=== PATIENT | female | born 1990 | race Caucasian/White ===

== ENCOUNTER 2018-11-17 12:48 | Emergency (ER) | payer SELFPAY ==
[2018-11-17] MEDS ORDERED: Lidocaine 2% w/ Epi 1:200K 10 ML VIAL ONE (13:06)
== END 2018-11-17 13:26 | disposition home or self-care (01) ==
LOC: BURERS 12:48
DX: N75.0 Cyst of Bartholin's gland (principal); E78.5 Hyperlipidemia, unspecified
CPT/HCPCS: 56420

== ENCOUNTER 2018-12-26 20:49 | Emergency (ER) | payer SELFPAY ==
[~2018-12-26 20:49] MED LIST: Iopamidol 370 76% 100 ML VIAL ONE
[2018-12-26 21:05] LABS: Bilirubin Negative (Negative); Blood, Urine Negative (Negative); Clarity Cloudy (Clear); Glucose, Urine (Dipstick) Negative (Negative); Leukocyte Moderate (Negative); Nitrite Negative (Negative); Protein, Urine (Dipstick) Negative (Neg-Trace); Urobilinogen 0.2 mg/dL (Less than 2)
[2018-12-26 21:07] LABS: Pregnancy Test - Urine (BHCG) Negative (Negative); Pregu Control Background? CLEAR/WHITE (CLR/WHITE); Pregu Control Bar Appear? YES (CONTROL BAR)
[2018-12-26] MEDS ORDERED: Morphine 2 MG/ML SYRINGE ONE ×2 (21:11→22:16)
[2018-12-26] MEDS ORDERED: Ondansetron PF 4 MG/2 ML Vial ONE (21:11)
[2018-12-26 21:16] LABS: Bacteria/HPF 1+ HPF (None Seen); RBC/HPF 0-3 HPF (0-3); WBC/HPF 21-50 HPF (0-3)
[2018-12-26 21:41] LABS: Hemoglobin 8.8 g/dL (12.0-16.0); Mean Corpuscular HGB CONC 28.9 g/dL (32.0-36.0); Mean Corpuscular Hemoglobin 21.3 pg (27.0-31.0); Mean Corpuscular Volume 73.8 fL (78.0-98.0); Mean Platelet Volume 6.2 fL (7.4-10.4); Platelet Count 404 thou/uL (130-400); RBC Distribution Width 17.2 % (11.5-14.5); Red Blood Cell (RBC) Count 4.13 mill/uL (4.20-5.40); White Blood Cell (WBC) Count 7.5 thou/uL (4.8-10.8)
[2018-12-26 21:51] LABS: ALT (SGPT) 8 U/L (8-55); AST (SGOT) 11 U/L (5-34); Alkaline Phosphatase 63 U/L (40-110); Anion Gap 12 mmol/L (10-20); BUN (Urea Nitrogen) 10 mg/dL (7.0-18.7); Bilirubin, Total 0.4 mg/dL (0.2-1.2); Calc. Creatinine Clearance 0 mL/min (70-130); Calcium 9.9 mg/dL (7.8-10.44); Carbon Dioxide 26 mmol/L (22-29); Chloride 105 mmol/L (98-107); Estimated GFR-MDRD 74; Glucose 84 mg/dL (70-105); Lipase 17 U/L (8-78); Potassium 3.8 mmol/L (3.5-5.1); Sodium 139 mmol/L (136-145)
[2018-12-26 21:53] LABS: #Basophils 0.1 thou/uL (0.0-0.2); #Eosinphils 0.1 thou/uL (0.0-0.7); #Lymphocytes 2.2 thou/uL (1.20-3.40); #Monocytes 0.5 thou/uL (0.11-0.59); #Neutrophils 4.9 thou/uL (1.40-6.50); %Eosinophils 0.9 % (0.0-10.0); %Lymphocytes 27.2 % (21.0-51.0); %Monocytes 6.1 % (0.0-10.0); %Neutrophils 64.7 % (42.0-75.0); Anisocytosis SLIGHT = 6-15 cells (100X) (0-5/hpf); Hypochromia MODERATE=16-30 cells (100X) (0-5/hpf); MDiff Complete? YES; Microcytosis MODERATE=15-30 cells (100X) (0-5/hpf); Ovalocytes SLIGHT = 2-5 cells (100X) (0-1/hpf); Platelet Morphology Comment Appears Adequate; Spherocytes SLIGHT = 1-5 cells (100X) (None Seen)
[2018-12-26] MEDS ORDERED: Thiamine HCl 200 MG/2 ML VIAL ONE (22:25)
[2018-12-27] MEDS ORDERED: Ondansetron PF 4 MG/2 ML Vial ONE (00:19)
--- NOTE | 2018-12-27 09:15 | CT ---
PRELIMINARY REPORT/[facility]/EMERGENCY AFTER HOURS PROCEDURE: PROCEDURE INFORMATION: Exam: CT Abdomen And Pelvis With Contrast Exam date and time: 12/26/2018 10:55 PM Clinical history: 27 years old, female; Abdominal pain; Generalized; Prior surgery; Surgery date: 6+ months; Surgery type: Gastric bypass 4 years ago, cholecystecomy, appendectomy, ; Patient HX : PT C/O of abd pain TECHNIQUE: Imaging protocol: Computed tomography of the abdomen and pelvis with intravenous contrast. Radiation optimization: All CT scans at this facility use at least one of these dose optimization techniques: a utomated exposure control; mA and/or kV adjustment per patient size (includes targeted exams where dose is matched to clinical indication); or iterative reconstruction. Contrast material: ISOVUE 370; Contrast volume: 96 ml; Contrast route: LT AC; COMPARISON: No relevant prior studies available. FINDINGS: Liver: Normal. Gallbladder and bile ducts: Gallbladder is surgically absent. Pancreas: Normal. Spleen: Normal. Adrenals: Normal. Kidneys and ureters: Normal. Stomach and bowel: Surgical changes of prior gastric bypass. Minimal wall thickening of the proximal Alli-en-Y loop, which can be seen with infection or inflammation. Appendix: Appendix is surgically absent. Intraperitoneal space: Unremarkable. No free air. No significant fluid collection. Vasculature: Phleboliths within the pelvis. Lymph nodes: Unremarkable. No enlarged lymph nodes. Bladder: Unremarkable as visualized. Reproductive: 18 mm cystic structure within the right adnexa, likely right ovarian cyst. Bones/joints: No acute abnormality. Soft tissues: Normal. IMPRESSION: Minimal wall thickening of the proximal Alli-en-Y loop, which can be seen with infection or inflammat ion. Thank you for allowing us to participate in the care of your patient. Dictated and Authenticated by: Travis Morley MD 12/26/2018 11:25 PM Central Time ([place] & [place]) FINAL REPORT CT ABDOMEN AND PELVIS WITH CONTRAST: Date: 12/26/[address] of the abdomen and pelvis was performed with IV contrast and apparently a small amount of o ral. The lung bases are clear. Liver, spleen, pancreas, adrenal glands, kidneys, and abdominal aorta appea r normal. There has been a prior cholecystectomy. The patient has had a gastric bypass. The proximal loop may be mildly thickened. Bowel shows no diste ntion or particular wall thickening. There is no free air or free fluid. No inflammatory change is se en around the bowel. CT of the pelvis suggests a small right adnexal cyst that is probably a small ovarian cyst. It measur es about 1.7 cm in size. No free fluid seen. No inflammatory changes. IMPRESSION: Possible mild thickening of the proximal loop of the gastric bypass. Report in agreement with preliminary reading by Sheryl. POS: HOME
== END 2018-12-27 00:25 | disposition home or self-care (01) ==
LOC: BURERS 20:49
DX: R10.11 Right upper quadrant pain (principal); R10.84 Generalized abdominal pain; R10.812 Left upper quadrant abdominal tenderness; R10.814 Left lower quadrant abdominal tenderness; D50.9 Iron deficiency anemia, unspecified; N39.0 Urinary tract infection, site not specified; R11.2 Nausea with vomiting, unspecified; E78.5 Hyperlipidemia, unspecified
CPT/HCPCS: 74177; 80053; 81003; 81015; 81025; 83605; 83690; 85025; 86140; 87086; 94760; 96361; 96365; 96367; 96375; 96376; J1956; J2270; J2405; J3411; Q9967

== ENCOUNTER 2019-10-18 15:34 | Emergency (ER) | payer SELFPAY ==
[2019-10-18 16:26] LABS: Pregnancy Test - Urine (BHCG) Negative (Negative); Pregu Control Background? CLEAR/WHITE (CLR/WHITE); Pregu Control Bar Appear? YES (CONTROL BAR)
[2019-10-18 16:46] LABS: Bilirubin Small (Negative); Blood, Urine Negative (Negative); Clarity Clear (Clear); Glucose, Urine (Dipstick) Negative (Negative); Ketone, Urine Trace mg/dL (Negative); Leukocyte Negative (Negative); Nitrite Negative (Negative); Protein, Urine (Dipstick) 30 mg/dL (Neg-Trace); Urobilinogen 0.2 mg/dL (Less than 2); pH, Urine 5.5 (5.0-9.0)
[2019-10-18 16:50] LABS: Bacteria/HPF Rare-Few HPF (None Seen); RBC/HPF None Seen HPF (0-3); WBC/HPF 0-3 HPF (0-3); Yeast-Budding Rare HPF (None Seen)
[2019-10-18] MEDS ORDERED: Mag-Al Plus 1200 MG/1200 MG/120 MG/30 ML UDCUP ONE (17:02)
[2019-10-18] MEDS ORDERED: Lidocaine Viscous Sol 2% 15 ml UD Cup ONE (17:02)
[2019-10-18] MEDS ORDERED: Morphine 4 MG/ML VIAL ONE ×2 (17:07→18:35)
[2019-10-18] MEDS ORDERED: Pantoprazole 40 MG VIAL ONE (17:08)
[2019-10-18] MEDS ORDERED: Ondansetron PF 4 MG/2 ML Vial ONE ×2 (17:08→18:35)
[2019-10-18 17:39] LABS: Hemoglobin 10.8 g/dL (12.0-16.0); Mean Corpuscular HGB CONC 28.8 g/dL (32.0-36.0); Mean Corpuscular Volume 80.1 fL (78.0-98.0); Mean Platelet Volume 5.8 fL (7.4-10.4); Platelet Count 333 thou/uL (130-400); RBC Distribution Width 16.3 % (11.5-14.5); Red Blood Cell (RBC) Count 4.69 mill/uL (4.20-5.40); White Blood Cell (WBC) Count 8.9 thou/uL (4.8-10.8)
[2019-10-18 17:40] LABS: ALT (SGPT) 18 U/L (8-55); AST (SGOT) 21 U/L (5-34); Albumin 4.7 g/dL (3.5-5.0); Alkaline Phosphatase 59 U/L (40-110); Anion Gap 16 mmol/L (10-20); BUN (Urea Nitrogen) 16 mg/dL (7.0-18.7); Bilirubin, Total 0.4 mg/dL (0.2-1.2); Calc. Creatinine Clearance 0 mL/min (70-130); Calcium 9.4 mg/dL (7.8-10.44); Carbon Dioxide 21 mmol/L (22-29); Chloride 104 mmol/L (98-107); Estimated GFR-MDRD 66; Globulin 3.6 g/dL (2.4-3.5); Glucose 89 mg/dL (70-105); Lipase 14 U/L (8-78); Potassium 4.1 mmol/L (3.5-5.1); Protein, Total 8.3 g/dL (6.0-8.3); Sodium 137 mmol/L (136-145)
[2019-10-18 17:44] LABS: Anisocytosis SLIGHT = 6-15 cells (100X) (0-5/hpf); Band 1 % (5-11); Elliptocytes SLIGHT = 2-5 cells (100X) (0-1/hpf); Eosinophils 1 % (0-10); Lymphocytes 21 % (21-51); MDiff Complete? YES; Monocytes 5 % (0-10); Neutrophil 72 % (42-75); Poikilocytosis SLIGHT = 6-15 cells (100X) (0-5/hpf); Tear Drops SLIGHT = 2-5 cells (100X) (0-1/hpf)
[2019-10-18] MEDS ORDERED: Sucralfate 1 GM TAB PO SCH (17:45)
--- NOTE | 2019-10-18 19:20 | CT ---
CT ABDOMEN AND PELVIS WITH CONTRAST: 10/18/[address] of the abdomen and pelvis was performed for evaluation of epigastric pain radiating through to the back. Comparison is made with the prior CT of 12/26/18. The lung bases are clear. The liver, spleen, pancreas, adrenal glands, kidneys, and abdominal aorta a ppear normal. There has been a prior cholecystectomy and a prior gastric bypass procedure is visible. No inflammatory changes are seen in the upper abdomen. No specific reason for epigastric pain was ap preciated. The common bile duct is prominent in size, 1 cm wide, but it can be followed all the way t o the duodenum and 1 cm is the usual upper normal in a post cholecystectomy patient. There is no distention of bowel to suggest obstruction. Surgical changes are seen from a prior append ectomy. Some of the proximal to mid loops of small bowel are fluid-filled which is a nonspecific find ings, sometimes a part of mild enteritis. I do not see any excessive mesenteric adenopathy. There is no free air or free fluid. CT of the pelvis shows a 4 cm bilobed right ovarian cyst. This is a new finding since the prior CT [facility] just showed a very small cyst (1.7 cm or so). There is no free fluid or inflammatory change in th e pelvis. IMPRESSION: 1. Mildly fluid-filled loops of small bowel, a nonspecific finding. Sometimes seen with mild ent eritis. 2. 4 cm bilobed right ovarian cyst. This may deserve some further follow-up electively. Findings discussed with Dr. Bee at 1907 on 10/18/19. POS: HOME
== END 2019-10-18 19:16 | disposition home or self-care (01) ==
LOC: BURERS 15:34
DX: R10.13 Epigastric pain (principal); E78.5 Hyperlipidemia, unspecified
CPT/HCPCS: 36415; 74177; 80053; 81003; 81015; 81025; 83605; 83690; 85025; 93005; 96365; 96375; 96376; C9113; J2270; J2405; Q9967

== ENCOUNTER 2019-12-10 09:15 | Emergency (ER) | payer OTHER, SELFPAY ==
[2019-12-10] MEDS ORDERED: Morphine 4 MG/ML VIAL ONE (09:39)
[2019-12-10] MEDS ORDERED: Ondansetron PF 4 MG/2 ML Vial ONE ×2 (09:40→10:23)
[2019-12-10] MEDS ORDERED: Lidocaine 2% w/Epinephrine 1:200K 20 ML VIAL ONE (10:01)
[2019-12-10] MEDS ORDERED: Bacitracin 1 PK ONE (10:02)
[2019-12-10 10:07] LABS: Hemoglobin 10.1 g/dL (12.0-16.0); Mean Corpuscular HGB CONC 28.9 g/dL (32.0-36.0); Mean Corpuscular Hemoglobin 23.2 pg (27.0-31.0); Mean Corpuscular Volume 80.3 fL (78.0-98.0); Mean Platelet Volume 6.1 fL (7.4-10.4); Platelet Count 426 thou/uL (130-400); RBC Distribution Width 17.8 % (11.5-14.5); Red Blood Cell (RBC) Count 4.33 mill/uL (4.20-5.40); White Blood Cell (WBC) Count 9.1 thou/uL (4.8-10.8)
[2019-12-10 10:14] LABS: BHCG - Serum Negative (NEGATIVE); Pregs Control Background? CLEAR/WHITE (CLR/WHITE); Pregs Control Bar Appear? YES (CONTROL BAR)
[2019-12-10 10:17] LABS: ALT (SGPT) 14 U/L (8-55); AST (SGOT) 15 U/L (5-34); Albumin 4.6 g/dL (3.5-5.0); Alkaline Phosphatase 60 U/L (40-110); Anion Gap 16 mmol/L (10-20); BUN (Urea Nitrogen) 14 mg/dL (7.0-18.7); Bilirubin, Total 0.4 mg/dL (0.2-1.2); Calc. Creatinine Clearance 0 mL/min (70-130); Calcium 9.6 mg/dL (7.8-10.44); Carbon Dioxide 22 mmol/L (22-29); Chloride 105 mmol/L (98-107); Globulin 3.6 g/dL (2.4-3.5); Glucose 100 mg/dL (70-105); Lipase 26 U/L (8-78); Protein, Total 8.2 g/dL (6.0-8.3); Sodium 139 mmol/L (136-145)
[2019-12-10 10:20] LABS: Bilirubin Negative (Negative); Blood, Urine Negative (Negative); Clarity Clear (Clear); Glucose, Urine (Dipstick) Negative (Negative); Ketone, Urine Negative (Negative); Leukocyte Trace (Negative); Nitrite Negative (Negative); Protein, Urine (Dipstick) Negative (Neg-Trace); Specific Gravity, Urine 1.015 (1.005-1.030); Urobilinogen 0.2 mg/dL (Less than 2)
[2019-12-10] MEDS ORDERED: Famotidine In NaCl 20 mg/50 ml Premix Bag ONE (10:21)
[2019-12-10 10:22] LABS: Bacteria/HPF 1+ HPF (None Seen); RBC/HPF 0-3 HPF (0-3); WBC/HPF 0-3 HPF (0-3)
[2019-12-10] MEDS ORDERED: Fentanyl 100 MCG/2 ML VIAL ONE (10:23)
[2019-12-10 10:33] LABS: #Eosinphils 0.2 thou/uL (0.0-0.7); #Lymphocytes 1.2 thou/uL (1.20-3.40); #Monocytes 0.5 thou/uL (0.11-0.59); #Neutrophils 7.1 thou/uL (1.40-6.50); %Basophils 0.5 % (0.0-1.0); %Eosinophils 2.7 % (0.0-10.0); %Lymphocytes 13.3 % (21.0-51.0); %Monocytes 5.3 % (0.0-10.0); %Neutrophils 78.2 % (42.0-75.0); Anisocytosis SLIGHT = 6-15 cells (100X) (0-5/hpf); Elliptocytes SLIGHT = 2-5 cells (100X) (0-1/hpf); Hypochromia SLIGHT = 6-15 cells (100X) (0-5/hpf); MDiff Complete? YES; Platelet Morphology Comment Appears Adequate
[2019-12-10] MEDS ORDERED: Promethazine HCl 25 MG/ML VIAL ONE (11:51)
[2019-12-10] MEDS ORDERED: Mag-Al Plus 1200 MG/1200 MG/120 MG/30 ML UDCUP ONE (11:51)
[2019-12-10] MEDS ORDERED: Lidocaine Viscous Sol 2% 15 ml UD Cup ONE (11:51)
[2019-12-10] MEDS ORDERED: Sulfameth/Trimethoprim DS 800-160mg TAB ONE (13:06)
[2019-12-10] MEDS ORDERED: Hydrocodone-Acetamin 15 ML UDCUP ONE (13:07)
--- NOTE | 2019-12-10 13:29 | CT ---
CT ABDOMEN AND PELVIS WITH CONTRAST: Date: 12/10/2019 Comparison is made with the 10/18/2019 study. This exam was done using both oral and IV contrast. FINDINGS: The lung bases are clear. The liver, spleen, pancreas, adrenal glands, and kidneys show no acute findings. Some areas in the qu adrate lobe of the liver that do not enhance as much as the remainder of the liver may be a pocket of fatty sparing. It was present before and has not changed. It is of no concern. The aorta is normal i n appearance. Oral contrast is present in the gastric remnant, as well as proximal small bowel. There are no loops that are tremendously dilated to suggest obstruction, nor is there any organization of loops. Some of the more proximal loops have some fluid levels in them, not unlike last time, though actually I woul d say less so than before. One could question whether the wall thickness of the pyloric portion of th e gastric remnant is slightly thickened, but this is a marginal finding at best. No free air or free fluid was seen. No dilation of colon or inflammatory changes were seen around it. CT of the pelvis shows no pelvic masses. The right ovarian cyst seen last time has resolved. There is no free fluid or inflammatory change in the region. IMPRESSION: 1. No evidence of obstruction. Appearance of the abdomen is fairly similar to the September study. 2. Very equivocal thickening of the distal/pyloric portion of the gastric remnant that may or may no t be significant. 3. Some fluid in small bowel, but without any significant dilation. Actually, a little less so than before. 4. Prior ovarian cyst resolved. Preliminary report called to Dr. Chavez at 1128 hours on 01/10/2020. CODE CR. POS: HOME
[2019-12-10] MEDS ORDERED: Iopamidol 370 76% 100 ML VIAL ONE (17:09)
[2019-12-11 12:04] LABS: SARS-CoV-2 MS2 Positive; SARS-CoV-2 N Gene Negative; SARS-CoV-2 S Gene Negative; SARS-CoV-2 by NAA Not Detected (NotDetected); SARS-CoV-2 orf1ab Negative
== END 2019-12-10 14:10 | disposition home or self-care (01) ==
LOC: BURERS 09:15
DX: R11.2 Nausea with vomiting, unspecified (principal); R19.7 Diarrhea, unspecified; Z20.828 Contact with and (suspected) exposure to other viral communicable diseases; L02.211 Cutaneous abscess of abdominal wall; L03.311 Cellulitis of abdominal wall; E78.5 Hyperlipidemia, unspecified; K21.9 Gastro-esophageal reflux disease without esophagitis; F41.9 Anxiety disorder, unspecified; F17.210 Nicotine dependence, cigarettes, uncomplicated; Z79.899 Other long term (current) drug therapy
CPT/HCPCS: 10060; 74177; 80053; 81003; 81015; 83605; 83690; 84703; 85025; 87635; 87804; 96365; 96375; 96376; J2270; J2405; J2550; J3010; Q9967; U0003

== ENCOUNTER 2019-12-15 09:51 | Emergency (ER) | payer SELFPAY ==
[2019-12-15] MEDS ORDERED: Ondansetron ODT 4 MG TAB ONE (10:58)
== END 2019-12-15 11:30 | disposition home or self-care (01) ==
LOC: BURERS 09:51
DX: R10.9 Unspecified abdominal pain (principal); R11.2 Nausea with vomiting, unspecified; R19.7 Diarrhea, unspecified; E78.5 Hyperlipidemia, unspecified; K21.9 Gastro-esophageal reflux disease without esophagitis; F41.9 Anxiety disorder, unspecified; F17.210 Nicotine dependence, cigarettes, uncomplicated
CPT/HCPCS: 99283; J0500; Q0162

== ENCOUNTER 2020-03-30 10:31 | Emergency (ER) | payer OTHER, SELFPAY ==
[2020-03-30 11:18] LABS: INR-International Normal Ratio 0.9; Prothrombin Time 12.2 sec (12.0-14.7)
[2020-03-30 11:20] LABS: Hemoglobin 9.4 g/dL (12.0-16.0); Mean Corpuscular HGB CONC 29.5 g/dL (32.0-36.0); Mean Corpuscular Hemoglobin 21.3 pg (27.0-31.0); Mean Corpuscular Volume 72.2 fL (78.0-98.0); Mean Platelet Volume 6.7 fL (7.4-10.4); Platelet Count 311 thou/uL (130-400); RBC Distribution Width 15.8 % (11.5-14.5); Red Blood Cell (RBC) Count 4.42 mill/uL (4.20-5.40)
[2020-03-30 11:29] LABS: ALT (SGPT) 14 U/L (8-55); AST (SGOT) 17 U/L (5-34); Albumin 4.3 g/dL (3.5-5.0); Alkaline Phosphatase 65 U/L (40-110); Anion Gap 14 mmol/L (10-20); BUN (Urea Nitrogen) 11 mg/dL (7.0-18.7); Bilirubin, Total 0.4 mg/dL (0.2-1.2); Calc. Creatinine Clearance 0 mL/min (70-130); Carbon Dioxide 22 mmol/L (22-29); Chloride 106 mmol/L (98-107); Globulin 3.3 g/dL (2.4-3.5); Glucose 91 mg/dL (70-105); Protein, Total 7.6 g/dL (6.0-8.3); Sodium 138 mmol/L (136-145)
[2020-03-30 11:36] LABS: #Basophils 0.1 thou/uL (0.0-0.2); #Eosinphils 0.1 thou/uL (0.0-0.7); #Lymphocytes 1.4 thou/uL (1.20-3.40); #Monocytes 0.2 thou/uL (0.11-0.59); #Neutrophils 3.2 thou/uL (1.40-6.50); %Basophils 1.5 % (0.0-1.0); %Eosinophils 2.4 % (0.0-10.0); %Lymphocytes 28.2 % (21.0-51.0); %Neutrophils 63.9 % (42.0-75.0); Elliptocytes SLIGHT = 2-5 cells (100X) (0-1/hpf); Hypochromia MODERATE=16-30 cells (100X) (0-5/hpf); MDiff Complete? YES; Microcytosis MODERATE=15-30 cells (100X) (0-5/hpf)
[2020-03-30] MEDS ORDERED: diphenhydrAMINE 50 MG/ML VIAL ONE (11:41)
[2020-03-30] MEDS ORDERED: methylPREDNISolone Sod Succ/PF 125 MG/2 ML VIAL ONE (11:41)
[2020-03-30] MEDS ORDERED: Metoclopramide HCl 10 MG/2 ML VIAL ONE (11:41)
== END 2020-03-30 12:11 | disposition left against medical advice (07) ==
LOC: BURERS 10:31
DX: G43.909 Migraine, unspecified, not intractable, without status migrainosus (principal); R20.2 Paresthesia of skin
CPT/HCPCS: 80053; 85025; 85610; 96374; 96375; J1200; J2765; J2930

== ENCOUNTER 2020-08-11 11:59 | Emergency (ER) | payer SELFPAY ==
[~2020-08-11 11:59] MED LIST changes: +Iopamidol 370 76% 50 ML VIAL FS ONE
[2020-08-11] MEDS ORDERED: Ondansetron PF 4 MG/2 ML Vial ONE ×2 (12:15→12:53)
[2020-08-11] MEDS ORDERED: Morphine 4 MG/ML VIAL ONE (12:15)
[2020-08-11] MEDS ORDERED: Thiamine HCl 200 MG/2 ML VIAL ONE (12:25)
[2020-08-11 12:29] LABS: Bilirubin Negative (Negative); Blood, Urine Negative (Negative); Clarity Clear (Clear); Glucose, Urine (Dipstick) Negative (Negative); Ketone, Urine Negative (Negative); Leukocyte Negative (Negative); Nitrite Negative (Negative); Protein, Urine (Dipstick) Negative (Neg-Trace); Urobilinogen 0.2 mg/dL (Less than 2)
[2020-08-11 12:38] LABS: BHCG - Serum Negative (NEGATIVE); Pregs Control Background? CLEAR/WHITE (CLR/WHITE); Pregs Control Bar Appear? YES (CONTROL BAR)
[2020-08-11 12:42] LABS: ALT (SGPT) 9 U/L (8-55); AST (SGOT) 21 U/L (5-34); Albumin 4.1 g/dL (3.5-5.0); Alkaline Phosphatase 39 U/L (40-110); Anion Gap 15 mmol/L (10-20); BUN (Urea Nitrogen) 14 mg/dL (7.0-18.7); Bilirubin, Total 0.3 mg/dL (0.2-1.2); Calc. Creatinine Clearance 0 mL/min (70-130); Calcium 8.8 mg/dL (7.8-10.44); Carbon Dioxide 17 mmol/L (22-29); Chloride 110 mmol/L (98-107); Globulin 3.2 g/dL (2.4-3.5); Glucose 126 mg/dL (70-105); Lipase 17 U/L (8-78); Potassium 4.3 mmol/L (3.5-5.1); Protein, Total 7.3 g/dL (6.0-8.3); Sodium 138 mmol/L (136-145)
[2020-08-11] MEDS ORDERED: Fentanyl 100 MCG/2 ML VIAL ONE (12:53)
[2020-08-11 13:05] LABS: Hemoglobin 8.7 g/dL (12.0-16.0); Mean Corpuscular HGB CONC 29.9 g/dL (32.0-36.0); Mean Corpuscular Hemoglobin 20.4 pg (27.0-31.0); Mean Corpuscular Volume 68.2 fL (78.0-98.0); Mean Platelet Volume 6.4 fL (7.4-10.4); Platelet Count 397 thou/uL (130-400); RBC Distribution Width 19.1 % (11.5-14.5); Red Blood Cell (RBC) Count 4.25 mill/uL (4.20-5.40); White Blood Cell (WBC) Count 5.9 thou/uL (4.8-10.8)
[2020-08-11 13:15] LABS: Band 2 % (5-11); Bite Cells SLIGHT = 2-5 cells (100X) (0-1/hpf); Hypersemented Neutrophil SLIGHT; Hypochromia SLIGHT = 6-15 cells (100X) (0-5/hpf); Lymphocytes 32 % (21-51); MDiff Complete? YES; Microcytosis MODERATE=15-30 cells (100X) (0-5/hpf); Monocytes 2 % (0-10); Neutrophil 62 % (42-75); Ovalocytes SLIGHT = 2-5 cells (100X) (0-1/hpf); Platelet Morphology Comment Appears Adequate; Reactive Lymphocytes 2 % (0-10); Spherocytes SLIGHT = 1-5 cells (100X) (None Seen)
[2020-08-11] MEDS ORDERED: Promethazine HCl 25 MG/ML VIAL ONE (13:56)
== END 2020-08-11 14:02 | disposition home or self-care (01) ==
LOC: BURERS 11:59
DX: R10.13 Epigastric pain (principal); R19.7 Diarrhea, unspecified; R11.2 Nausea with vomiting, unspecified; F17.200 Nicotine dependence, unspecified, uncomplicated
CPT/HCPCS: 74177; 80053; 81003; 83605; 83690; 84703; 85025; 96372; 96374; 96375; 96376; J0500; J2270; J2405; J2550; J3010; J3411; Q9967

== ENCOUNTER 2020-11-20 14:44 | Emergency (ER) | payer SELFPAY ==
[2020-11-20] MEDS ORDERED: Fentanyl 100 MCG/2 ML VIAL ONE (15:29)
[2020-11-20] MEDS ORDERED: Ondansetron PF 4 MG/2 ML Vial ONE (15:29)
[2020-11-20 15:39] LABS: Clarity Turbid (Clear); pH, Urine 6.5 (5.0-9.0)
[2020-11-20 15:41] LABS: Bilirubin Unable to Interpret (Negative); Blood, Urine Unable to Interpret (Negative); Glucose, Urine (Dipstick) Unable to Interpret mg/dL (Negative); Ketone, Urine Unable to Interpret mg/dL (Negative); Leukocyte Unable to Interpret (Negative); Nitrite Unable to Interpret (Negative); Protein, Urine (Dipstick) Unable to Interpret mg/dL (Neg-Trace); Urobilinogen UNABLE TO INTERPRET mg/dL (Less than 2)
[2020-11-20 15:42] LABS: Pregnancy Test - Urine (BHCG) Negative (Negative); Pregu Control Background? CLEAR/WHITE (CLR/WHITE); Pregu Control Bar Appear? YES (CONTROL BAR)
[2020-11-20 15:44] LABS: Bacteria/HPF 1+ HPF (None Seen); Mucous/LPF Rare LPF (<2+); RBC/HPF Greater than 50 HPF (0-3); Squamous Epithelial 0-3 HPF (0-3); WBC/HPF 0-3 HPF (0-3)
[2020-11-20 15:46] LABS: Amphetamine Not Detected (NotDetected); Barbiturates Screen Not Detected (NotDetected); Benzodiazepine Screen Not Detected (NotDetected); Cocaine Metabolite Screen Not Detected (NotDetected); Medtox Control Line Valid? VALID (VALID); Methadone Not Detected (NotDetected); Methamphetamine Not Detected (NotDetected); Opiate Screen Not Detected (NotDetected); Oxycodone Screen Not Detected (NotDetected); Phencyclidine (PCP) Not Detected (NotDetected); THC/Cannabinoid Screen Detected (NotDetected); Tricyclic Screen Not Detected (NotDetected)
[2020-11-20 15:52] LABS: #Lymphocytes 1.8 thou/uL (1.20-3.40); #Monocytes 0.3 thou/uL (0.11-0.59); #Neutrophils 5.6 thou/uL (1.40-6.50); %Basophils 0.5 % (0.0-1.0); %Eosinophils 0.5 % (0.0-10.0); %Lymphocytes 23.2 % (21.0-51.0); %Monocytes 3.6 % (0.0-10.0); %Neutrophils 72.2 % (42.0-75.0); Hemoglobin 9.7 g/dL (12.0-16.0); Mean Corpuscular HGB CONC 31.1 g/dL (32.0-36.0); Mean Corpuscular Hemoglobin 22.6 pg (27.0-31.0); Mean Corpuscular Volume 72.9 fL (78.0-98.0); Mean Platelet Volume 5.9 fL (7.4-10.4); Platelet Count 420 thou/uL (130-400); RBC Distribution Width 18.1 % (11.5-14.5); Red Blood Cell (RBC) Count 4.28 mill/uL (4.20-5.40); White Blood Cell (WBC) Count 7.7 thou/uL (4.8-10.8)
[2020-11-20 15:58] LABS: MDiff Complete? YES
[2020-11-20 16:04] LABS: ALT (SGPT) 17 U/L (8-55); AST (SGOT) 22 U/L (5-34); Albumin 4.2 g/dL (3.5-5.0); Alkaline Phosphatase 38 U/L (40-110); Anion Gap 15 mmol/L (10-20); BUN (Urea Nitrogen) 15 mg/dL (7.0-18.7); Bilirubin, Total 0.3 mg/dL (0.2-1.2); Calc. Creatinine Clearance 0 mL/min (70-130); Calcium 9.4 mg/dL (7.8-10.44); Carbon Dioxide 20 mmol/L (22-29); Chloride 107 mmol/L (98-107); Globulin 3.4 g/dL (2.4-3.5); Glucose 82 mg/dL (70-105); Lipase 18 U/L (8-78); Protein, Total 7.6 g/dL (6.0-8.3); Sodium 138 mmol/L (136-145)
[2020-11-20] MEDS ORDERED: Ketorolac Tromethamine 30 MG/ML VIAL ONE (16:20)
== END 2020-11-20 17:01 | disposition home or self-care (01) ==
LOC: BURERS 14:44
DX: N93.9 Abnormal uterine and vaginal bleeding, unspecified (principal); D64.9 Anemia, unspecified; F12.10 Cannabis abuse, uncomplicated; R10.12 Left upper quadrant pain; F17.200 Nicotine dependence, unspecified, uncomplicated; R79.0 Abnormal level of blood mineral; Z79.899 Other long term (current) drug therapy
CPT/HCPCS: 80053; 80306; 81003; 81015; 81025; 83690; 85025; 96374; 96375; J1885; J2405; J3010

== ENCOUNTER 2022-03-26 11:28 | Emergency (ER) | payer BC, SELFPAY ==
[2022-03-26] MEDS ORDERED: Ketorolac Tromethamine 30 MG/ML VIAL ONE (12:07)
[2022-03-26] MEDS ORDERED: Ondansetron PF 4 MG/2 ML Vial ONE (12:07)
[2022-03-26 12:13] LABS: Bilirubin Negative (Negative); Blood, Urine Negative (Negative); Clarity Clear (Clear); Glucose, Urine (Dipstick) Negative (Negative); Ketone, Urine Negative (Negative); Leukocyte Negative (Negative); Nitrite Negative (Negative); Protein, Urine (Dipstick) Negative (Neg-Trace); Specific Gravity, Urine 1.015 (1.005-1.030); Urobilinogen 0.2 mg/dL (Less than 2)
[2022-03-26 12:16] LABS: #Basophils 0.1 thou/uL (0.0-0.2); #Eosinphils 0.2 thou/uL (0.0-0.7); #Lymphocytes 1.6 thou/uL (1.20-3.40); #Monocytes 0.3 thou/uL (0.11-0.59); #Neutrophils 4.3 thou/uL (1.40-6.50); %Basophils 1.4 % (0.0-1.0); %Lymphocytes 24.3 % (21.0-51.0); %Neutrophils 66.2 % (42.0-75.0); Hemoglobin 10.6 g/dL (12.0-16.0); Mean Corpuscular HGB CONC 29.9 g/dL (32.0-36.0); Mean Corpuscular Hemoglobin 20.7 pg (27.0-31.0); Mean Corpuscular Volume 69.3 fl (78.0-98.0); Mean Platelet Volume 6.5 fL (7.4-10.4); Platelet Count 386 10x3/uL (130-400); RBC Distribution Width 16.3 % (11.5-14.5); White Blood Cell (WBC) Count 6.5 10x3/uL (4.8-10.8)
[2022-03-26 12:19] LABS: MDiff Complete? YES
[2022-03-26 12:27] LABS: ALT (SGPT) 17 U/L (8-55); AST (SGOT) 21 U/L (5-34); Albumin 4.6 g/dL (3.5-5.0); Alkaline Phosphatase 71 U/L (40-110); Anion Gap 13 mmol/L (10-20); BUN (Urea Nitrogen) 10 mg/dL (7.0-18.7); Calc. Creatinine Clearance 0 mL/min (70-130); Calcium 9.5 mg/dL (7.8-10.44); Carbon Dioxide 22 mmol/L (22-29); Chloride 106 mmol/L (98-107); Estimated GFR 95; Globulin 3.4 g/dL (2.4-3.5); Glucose 93 mg/dL (70-105); Potassium 4.1 mmol/L (3.5-5.1); Sodium 137 mmol/L (136-145)
[2022-03-26 12:30] LABS: BHCG - Serum Negative (NEGATIVE); Pregs Control Background? CLEAR/WHITE (CLR/WHITE); Pregs Control Bar Appear? YES (CONTROL BAR)
[2022-03-26] MEDS ORDERED: HYDROcodone/Acetaminophen 10/325 mg Tablet ONE (13:33)
[2022-03-26 14:19] LABS: Bilirubin, Total 0.4 mg/dL (0.2-1.2)
== END 2022-03-26 13:41 | disposition home or self-care (01) ==
LOC: BURERS 11:28
DX: R10.31 Right lower quadrant pain (principal); R11.2 Nausea with vomiting, unspecified; R19.7 Diarrhea, unspecified
CPT/HCPCS: 74177; 80053; 81003; 84703; 85025; 96374; 96375; J1885; J2405

== ENCOUNTER 2022-06-01 10:50 | Emergency (ER) | payer BC ==
[2022-06-01] MEDS ORDERED: Morphine 10 MG/ML VIAL ONE (11:39)
[2022-06-01] MEDS ORDERED: predniSONE 20 MG TAB ONE (11:40)
[2022-06-01] MEDS ORDERED: Ketorolac Tromethamine 30 MG/ML VIAL ONE (11:40)
[2022-06-01 11:50] LABS: #Basophils 0.1 thou/uL (0.0-0.2); #Eosinphils 0.2 thou/uL (0.0-0.7); #Lymphocytes 1.6 thou/uL (1.20-3.40); #Monocytes 0.2 thou/uL (0.11-0.59); #Neutrophils 2.9 thou/uL (1.40-6.50); %Basophils 1.1 % (0.0-1.0); %Eosinophils 4.5 % (0.0-10.0); %Lymphocytes 31.4 % (21.0-51.0); %Monocytes 4.9 % (0.0-10.0); Hemoglobin 10.4 g/dL (12.0-16.0); Mean Corpuscular HGB CONC 29.5 g/dL (32.0-36.0); Mean Corpuscular Hemoglobin 20.6 pg (27.0-31.0); Mean Corpuscular Volume 69.8 fl (78.0-98.0); Mean Platelet Volume 7.3 fL (7.4-10.4); Platelet Count 328 10x3/uL (130-400); RBC Distribution Width 16.4 % (11.5-14.5); Red Blood Cell (RBC) Count 5.06 mill/uL (4.20-5.40)
[2022-06-01 12:01] LABS: ALT (SGPT) 12 U/L (8-55); AST (SGOT) 16 U/L (5-34); Albumin 4.5 g/dL (3.5-5.0); Alkaline Phosphatase 56 U/L (40-110); Anion Gap 11 mmol/L (10-20); BUN (Urea Nitrogen) 11 mg/dL (7.0-18.7); Bilirubin, Total 0.3 mg/dL (0.2-1.2); Calc. Creatinine Clearance 0 mL/min (70-130); Calcium 9.6 mg/dL (7.8-10.44); Carbon Dioxide 23 mmol/L (22-29); Chloride 109 mmol/L (98-107); Estimated GFR 85; Globulin 3.5 g/dL (2.4-3.5); Glucose 81 mg/dL (70-105); Potassium 3.9 mmol/L (3.5-5.1); Sodium 139 mmol/L (136-145)
[2022-06-01 12:29] LABS: Hypochromia SLIGHT = 6-15 cells (100X) (0-5/hpf); MDiff Complete? YES; Microcytosis SLIGHT = 6-15 cells (100X) (0-5/hpf); Platelet Morphology Comment Appears Adequate
== END 2022-06-01 13:04 | disposition home or self-care (01) ==
LOC: BURERS 10:50
DX: M94.0 Chondrocostal junction syndrome [Tietze] (principal); F17.220 Nicotine dependence, chewing tobacco, uncomplicated
CPT/HCPCS: 36415; 71045; 80053; 83880; 85025; 93005; 96372; J1885; J2270; J7512

== ENCOUNTER 2022-06-27 07:56 | Emergency (ER) | payer BC ==
[2022-06-27] MEDS ORDERED: Aspirin 325 MG TAB ONE (08:11)
[2022-06-27] MEDS ORDERED: Ipratropium/Albuterol 3 ML NEB ONE (08:11)
[2022-06-27 08:22] LABS: Hemoglobin 11.1 g/dL (12.0-16.0); Mean Corpuscular HGB CONC 29.7 g/dL (32.0-36.0); Mean Corpuscular Hemoglobin 21.4 pg (27.0-31.0); Mean Corpuscular Volume 71.9 fl (78.0-98.0); Mean Platelet Volume 6.1 fL (7.4-10.4); Platelet Count 396 10x3/uL (130-400); RBC Distribution Width 19.2 % (11.5-14.5); Red Blood Cell (RBC) Count 5.17 mill/uL (4.20-5.40); White Blood Cell (WBC) Count 4.9 10x3/uL (4.8-10.8)
[2022-06-27 08:31] LABS: BHCG - Serum Negative (NEGATIVE); Pregs Control Background? CLEAR/WHITE (CLR/WHITE); Pregs Control Bar Appear? YES (CONTROL BAR)
[2022-06-27 08:37] LABS: ALT (SGPT) 16 U/L (8-55); AST (SGOT) 23 U/L (5-34); Albumin 4.8 g/dL (3.5-5.0); Alkaline Phosphatase 66 U/L (40-110); Anion Gap 15 mmol/L (10-20); BUN (Urea Nitrogen) 10 mg/dL (7.0-18.7); Bilirubin, Total 0.8 mg/dL (0.2-1.2); Calc. Creatinine Clearance 0 mL/min (70-130); Carbon Dioxide 18 mmol/L (22-29); Chloride 107 mmol/L (98-107); Estimated GFR 75; Globulin 3.8 g/dL (2.4-3.5); Glucose 131 mg/dL (70-105); Magnesium 2.2 mg/dL (1.6-2.6); Potassium 3.7 mmol/L (3.5-5.1); Protein, Total 8.6 g/dL (6.0-8.3); Sodium 136 mmol/L (136-145)
[2022-06-27 08:39] LABS: Eosinophils 2 % (0-10); Hypochromia SLIGHT = 6-15 cells (100X) (0-5/hpf); Lymphocytes 22 % (21-51); MDiff Complete? YES; Microcytosis SLIGHT = 6-15 cells (100X) (0-5/hpf); Monocytes 6 % (0-10); Neutrophil 70 % (42-75); Platelet Morphology Comment Appears Adequate
[2022-06-27] MEDS ORDERED: Iopamidol 370 76% 100 ML VIAL ONE (16:20)
== END 2022-06-27 09:43 | disposition home or self-care (01) ==
LOC: BURERS 07:56
DX: M94.0 Chondrocostal junction syndrome [Tietze] (principal); I10 Essential (primary) hypertension; E11.9 Type 2 diabetes mellitus without complications; F17.200 Nicotine dependence, unspecified, uncomplicated
CPT/HCPCS: 71045; 71275; 80053; 83735; 83880; 84484; 84703; 85025; 85379; 93005; 94760; J7620; Q9967